=== PATIENT | male | born 1955 | race American Indian/Alaskan Native ===

== ENCOUNTER 2020-05-31 06:12 | Day surgery (SDC) | payer OTHER ==
[~2020-05-31 06:12] MED LIST: NEOMY 3.5 MG/BACIT 400 UNITS/POLY B 5000 UNITS OINT 15 GM TP ONE; SODIUM CHLORIDE 0.9% IRR 1,500 ML BOTTLE IR ONE
[2020-05-31] MEDS ORDERED: LACTATED RINGERS 1,000 ML IV SCH (07:32)
[2020-05-31] MEDS ORDERED: propofoL 200 MG/20 ML VIAL IV ONE (07:32)
[2020-05-31] MEDS ORDERED: HYDROmorphone 1 MG/1 ML INJ ONE (07:32)
[2020-05-31] MEDS ORDERED: ONDANSETRON 4 MG/2 ML INJ IV PRN (07:40)
[2020-05-31] MEDS ORDERED: HYDROmorphone 1 MG/1 ML INJ IV PRN ×2 (07:40)
[2020-05-31] MEDS ORDERED: NEOMY 3.5 MG/BACIT 400 UNITS/POLY B 5000 UNITS/GM OINT PACKET TP ONE (07:40)
[2020-05-31] MEDS ORDERED: BUPIVACAINE/PF (0.25%) 2.5 MG/ML 30 ML VIAL INFILTRATI ONE (07:40)
--- NOTE | 2020-05-31 07:40 | Anesthesia Day of Surgery ---
Anesthesia Day of Surgery - Day of Surgery Patient Examined: Yes Patient H&P Reviewed: Yes Patient is NPO: Yes Beta Blockers: Yes
--- NOTE | 2020-05-31 07:42 | Anesthesia Consultation ---
Anesthesia Consult and Med Hx Date of service: 05/31/20 - Airway Anesthetic Teeth Evaluation: Poor (Many missing. He's planning to have the remaining teeth pulled) ROM Head & Neck: Adequate Mental/Hyoid Distance: Adequate Mallampati Class: Class II Intubation Access Assessment: Good - Pre-Operative Health Status ASA Pre-Surgery Classification: ASA2 Proposed Anesthetic Plan: General - Pulmonary Hx Smoking: No Hx Asthma: No Hx Respiratory Symptoms: No (+2FS) COPD: No Hx Pneumonia: No Hx Sleep Apnea: No (MIKI PRE SCREEN HIGH RISK.) - Cardiovascular System Hx Hypertension: Yes Hx Heart Attack/AMI: No Hx Pacemaker: No Hx Internal Defibrillator: No Hx Valvular Heart Disease: No Hx Heart Murmur: No - Central Nervous System Hx Seizures: No Hx Back Pain: Yes (NECK PAIN) Hx Psychiatric Problems: No - Gastrointestinal Hx Gastroesophageal Reflux Disease: No - Endocrine Hx End Stage Renal Disease: No Hx Cirrhosis: No Hx Liver Disease: No Hx Non-Insulin Dependent Diabetes: Yes Hx Thyroid Disease: No - Hematic Hx Anemia: No Hx Sickle Cell Disease: No - Other Systems Hx Alcohol Use: Yes (OCC WINE) Hx Substance Use: No Hx Cancer: No Hx Obesity: No
[2020-05-31] MEDS ORDERED: BACTERIOSTATIC SODIUM CHLORIDE 0.9% 30 ML VIAL INFILTRATI ONE (07:46)
--- NOTE | 2020-05-31 08:05 | Post Operative Note ---
Date of procedure: 05/31/20 Pre-op diagnosis: severe phimosis Post-op diagnosis: same Findings: severe phimosis Procedure: circ Anesthesia: GETA Surgeon: NARA BUNN Estimated blood loss: minimal Pathology: list (foreskin) Specimen disposition: to lab Condition: stable Disposition: PACU
--- NOTE | 2020-05-31 08:08 | Discharge Summary ---
Short Stay Discharge Plan Activity: other (no straining no sex ) Weight Bearing Status: Full Weight Bearing Diet: low fat, low cholesterol, low salt Special Instructions: other (remove dressing after 7 pm ) Follow up with: BRENDON CASTRO MD [Primary Care Provider] - 7 Days NARA BUNN MD [Staff Physician] - 7 Days
[2020-05-31] MEDS ORDERED: MIDAZOLAM 2 MG/2 ML INJ ONE (08:29)
[2020-05-31] MEDS ORDERED: LIDOCAINE MPF (2%) 20 MG/1 ML VIAL 5 ML ONE (08:34)
[2020-05-31] MEDS ORDERED: ceFAZolin/STERILE WATER 2 GM/20 ML SYRINGE IV NR (08:34)
[2020-05-31] MEDS ORDERED: ONDANSETRON 4 MG/2 ML INJ ONE (09:12)
[2020-05-31] MEDS ORDERED: SODIUM CHLORIDE 0.9% IRR 1,500 ML BOTTLE IR ONE (09:12)
[2020-05-31] MEDS ORDERED: NEOMY 3.5 MG/BACIT 400 UNITS/POLY B 5000 UNITS OINT 15 GM TP ONE (09:20)
--- NOTE | 2020-05-31 10:28 | Post Anesthesia Evaluation ---
- Post Anesthesia Evaluation Patient Participated: Yes Airway Patent: Yes Stable Respiratory Function: Yes Nausea/Vomiting: No Temp > 96.8F: Yes Pain Manageable: Yes Adequeate Hydration: Yes Anesthesia Complications: No Block Receding Appropriately: Not Applicable Patient on Ventilator: No
[2020-05-31 10:46] VITALS: BP 143/88
--- NOTE | 2020-05-31 11:58 | Operative Report ---
PREOPERATIVE DIAGNOSES: Severe phimosis and balanitis xerotica obliterans. POSTOPERATIVE DIAGNOSES: Severe phimosis and balanitis xerotica obliterans. PROCEDURE: Circumcision dorsal slit technique. SURGEON: Dr. Carlos. ANESTHESIA: General. FINDINGS: This is a gentleman with severe phimosis. We could not see any part of the glans. He has vitiligo and evidence of balanitis xerotica obliterans. He now presents for treatment. He could not void well. He would accumulate within the foreskin. It is severely thickened. DESCRIPTION OF PROCEDURE: The patient was brought to the operative room and placed on the operating table. Following induction of anesthesia, placed in supine position, prepped and draped in usual sterile fashion. Two hemostats were placed on the dorsum and a slit was through this thickened tissue. It did not bleed. We saw the glans. The glans were adherent to the inner foreskin circumferentially. A ventral slit was made and we took out all this inflamed foul odor skin. Some of the tissue was adherent to the base of the gland. We could not see the coronal junction while it was all adherent. We did the best we could, but every time we try to peel it off, it would ooze from the glans because it was stuck. The patient tolerated the procedure well. The wound was irrigated and sutures were placed circumferentially with 3-0 chromic. The patient tolerated the procedure well. Any small bleeders were cauterized, tied with 3-0 Vicryl, brought to recovery in stable condition. JOB# [id number] FRED/CRISTIANO
== END 2020-05-31 10:55 | disposition home or self-care (01) ==
LOC: OR 06:12
PROVIDERS: ATTEND Urology
DX: N47.1 Phimosis (principal); Z20.828 Contact with and (suspected) exposure to other viral communicable diseases; I10 Essential (primary) hypertension; K21.9 Gastro-esophageal reflux disease without esophagitis; M19.90 Unspecified osteoarthritis, unspecified site; E11.9 Type 2 diabetes mellitus without complications; Z79.899 Other long term (current) drug therapy; Z79.82 Long term (current) use of aspirin; Z79.84 Long term (current) use of oral hypoglycemic drugs; Z98.41 Cataract extraction status, right eye; Z98.42 Cataract extraction status, left eye; Z87.440 Personal history of urinary (tract) infections; Z72.89 Other problems related to lifestyle; Z98.890 Other specified postprocedural states
CPT/HCPCS: 54161; 82962; 88304; A6250; J0690; J1170; J2250; J2405; J2704; J7120; U0003

== ENCOUNTER 2020-06-24 00:30 | Emergency (ER) | payer OTHER ==
[2020-06-24 02:33] LABS: Basophils # (Auto) 0.1 K/mm3 (0.0-0.1); Basophils % (Auto) 0.6 % (0.0-1.8); Eosinophils # (Auto) 0.1 K/mm3 (0.0-0.4); Hematocrit 37.7 % (35.5-45.6); Hemoglobin 12.6 gm/dl (11.8-15.2); Lymphocytes # (Auto) 1.4 K/mm3 (1.2-5.4); Mean Corpuscular HGB Conc 33 % (32-34); Mean Corpuscular Volume 86 fl (84-94); Monocytes # (Auto) 0.5 K/mm3 (0.0-0.8); Monocytes % (Auto) 3.3 % (0.0-7.3); Platelet Count 216 K/mm3 (140-440); Red Blood Count 4.39 M/mm3 (3.65-5.03)
[2020-06-24 02:43] LABS: Alanine Aminotransferase 12 units/L (7-56); Albumin 4.3 g/dL (3.9-5); Blood Urea Nitrogen 12 mg/dL (9-20); Hemolysis Index 4
[2020-06-24 02:56] LABS: BUN/Creatinine Ratio 17
[2020-06-24 03:34] LABS: Bacteria,Urine 1+ /HPF (Negative); Bilirubin,Urine NEG (Negative); Blood,Urine NEG (Negative); Color,Urine Yellow (Yellow); Mucus,Urine 2+ /HPF; Urobilinogen,Urine < 2.0 mg/dL (<2.0)
[2020-06-24 03:41] LABS: Protein,Urine >500 mg/dL (Negative)
[2020-06-24] MEDS ORDERED: ONDANSETRON 4 MG/2 ML INJ IV STA (06:30)
[2020-06-24] MEDS ORDERED: MORPHINE 4 MG/1 ML INJ IV STA (06:30)
--- NOTE | 2020-06-24 06:34 | Emergency Department Report ---
Blank Doc - Documentation Documentation: 64-year-old F [place] male past medical history of hypertension and diabetes presents emerged department complaining of a 3-day history of abnormal bowel movements with constipation and now a 1 day history of left flank pain which radiates from the flank down to the left lower quadrant associated with a sharp and crampy This initial assessment/diagnostic orders/clinical plan/treatment(s) is/are subject to change based on patients health status, clinical progression and re- assessment by fellow clinical providers in the ED. Further treatment and workup at subsequent clinical providers discretion. Patient/guardian urged not to elope from the ED as their condition may be serious if not clinically assessed and managed. Initial orders include: Labs, CT scan, allergies control
--- NOTE | 2020-06-24 08:30 | Cat Scan Report ---
CT OF THE ABDOMEN AND PELVIS WITH INTRAVENOUS CONTRAST INDICATION / CLINICAL INFORMATION: Left flank and lower abdominal pain for 2 days. TECHNIQUE: The patient received 100 cc Omnipaque [address] scans at this location are performed using CT dose reduction for ALARA by means of automated exposure control. COMPARISON: None available. FINDINGS: ABDOMEN: There is a 2.5 cm rounded mass in the right adrenal gland measures 48 Hounsfield units. The liver, spleen, gallbladder, bile ducts, pancreas, left adrenal gland and kidneys demonstrate no signi ficant abnormality. There is a moderate amount of stool throughout the colon. I see no evidence of bunny wel obstruction, wall thickening or free air. No adenopathy is seen. The lower lung zones are clear. PELVIS: The distal ureters and urinary bladder are normal. The prostate gland is mildly enlarged. A n ormal appendix is present. There is no evidence of diverticulitis. There is a tiny fat-containing lef t inguinal hernia without complication. There is advanced lumbar spondylosis. IMPRESSION: 1. No acute intra-abdominal disease is identified. 2. Incidental 2.5 cm right adrenal mass. Unless prior studies are available for comparison, nonemerge nt adrenal protocol MRI or CT may be helpful in further characterization. Signer Name: Rashaad Kilpatrick MD Signed: 06/24/2020 8:26 AM Workstation Name: [id number]
--- NOTE | 2020-06-24 08:57 | Emergency Department Report ---
ED Abdominal Pain HPI - General Chief Complaint: Abdominal Pain Stated Complaint: LOWER BACK PAIN X'S 2 DAYS Time Seen by Provider: 06/24/20 07:24 Source: patient, family Mode of arrival: Stretcher Limitations: No Limitations - History of Present Illness Initial Comments: This is a 64-year-old male complaining of back pain abdominal pain nausea and vomiting x2 days. He vomited a total of 3-4 times. Patient states his last bowel movement was 3 days ago and he feels like he is constipated. At the time of my evaluation patient is pain-free and in no distress. He denies chest pain or shortness of breath no recent vomiting MD Complaint: abdominal pain -: days(s) (2) Location: diffuse Radiation: back Migration to: no migration Severity scale (0 -10): 4 Quality: aching Consistency: constant Improves With: medication Worsens With: nothing Associated Symptoms: constipation. denies: nausea, vomiting, hematuria, syncope - Related Data Home Medications Medication Instructions Recorded Confirmed Last Taken Adult Probiotic 1 cap PO DAILY 05/23/20 05/23/20 05/30/20 Aspirin 81 mg PO DAILY 05/23/20 05/29/20 05/29/20 Complete Multi Tablet 1 tab PO DAILY 05/23/20 05/23/20 05/30/20 Ibuprofen 400 mg PO DAILY 05/23/20 05/23/20 05/29/20 Lisinopril 40 mg PO DAILY 05/23/20 05/23/20 05/30/20 Tamsulosin 0.4 mg PO DAILY 05/23/20 05/23/20 05/30/20 amLODIPine 10 mg PO BID 05/23/20 05/31/20 05/31/20 08:00 carvediloL 50 mg PO BID 05/23/20 05/31/20 05/31/20 08:00 metFORMIN 1,000 mg PO BID 05/23/20 05/23/20 05/30/20 Previous Rx's Medication Instructions Recorded Last Taken Type Polyethylene Glycol 3350 [Miralax] 255 gm PO DAILY #7 powder 06/24/20 Unknown Rx Allergies Allergy/AdvReac Type Severity Reaction Status Date / Time No Known Allergies Allergy Verified 05/23/20 16:11 ED Review of Systems ROS: Stated complaint: LOWER BACK PAIN X'S 2 DAYS Other details as noted in HPI Comment: All other systems reviewed and negative Constitutional: denies: chills, fever ENT: denies: ear pain, dental pain Respiratory: denies: orthopnea, shortness of breath Cardiovascular: denies: chest pain Endocrine: no symptoms reported Gastrointestinal: abdominal pain, constipation Genitourinary: denies: dysuria, frequency, testicular pain, testicular mass Musculoskeletal: back pain Skin: denies: rash, lesions, change in color Neurological: denies: headache, paresthesias, confusion Psychiatric: denies: anxiety, depression ED Past Medical Hx - Past Medical History Previous Medical History?: Yes Hx Hypertension: Yes Hx Heart Attack/AMI: No Hx Congestive Heart Failure: No Hx Diabetes: Yes Hx GERD: Yes Hx Liver Disease: No Hx Sickle Cell Disease: No Hx Arthritis: Yes (LT KNEE AND LT ANKLE) Hx Headaches / Migraines: No Hx Seizures: No Hx Kidney Stones: No Hx Asthma: No Hx COPD: No Hx Tuberculosis: No Hx HIV: No - Surgical History Past Surgical History?: No Hx Pacemaker: No Hx Internal Defibrillator: No - Social History Smoking Status: Current Every Day Smoker Substance Use Type: None - Medications Home Medications: Home Medications Medication Instructions Recorded Confirmed Last Taken Type Adult Probiotic 1 cap PO DAILY 05/23/20 05/23/20 05/30/20 History Aspirin 81 mg PO DAILY 05/23/20 05/29/20 05/29/20 History Complete Multi Tablet 1 tab PO DAILY 05/23/20 05/23/20 05/30/20 History Ibuprofen 400 mg PO DAILY 05/23/20 05/23/20 05/29/20 History Lisinopril 40 mg PO DAILY 05/23/20 05/23/20 05/30/20 History Tamsulosin 0.4 mg PO DAILY 05/23/20 05/23/20 05/30/20 History amLODIPine 10 mg PO BID 05/23/20 05/31/20 05/31/20 08:00 History carvediloL 50 mg PO BID 05/23/20 05/31/20 05/31/20 08:00 History metFORMIN 1,000 mg PO BID 05/23/20 05/23/20 05/30/20 History Polyethylene Glycol 3350 [Miralax] 255 gm PO DAILY #7 powder 06/24/20 Unknown Rx ED Physical Exam - General Limitations: No Limitations General appearance: alert, in no apparent distress - Head Head exam: Present: atraumatic - Eye Eye exam: Present: normal appearance - ENT ENT exam: Present: normal exam - Respiratory Respiratory exam: Present: normal lung sounds bilaterally. Absent: respiratory distress, wheezes, chest wall tenderness - Cardiovascular Cardiovascular Exam: Present: regular rate, normal heart sounds - GI/Abdominal GI/Abdominal exam: Present: soft, normal bowel sounds. Absent: distended, tenderness, guarding - Extremities Exam Extremities exam: Present: normal inspection - Back Exam Back exam: Present: normal inspection - Neurological Exam Neurological exam: Present: alert, oriented X3 - Psychiatric Psychiatric exam: Present: normal affect - Skin Skin exam: Present: warm, dry, intact, normal color ED Course Vital Signs 06/24/20 06/24/20 06/24/20 01:19 08:00 09:37 Temperature 97.7 F Pulse Rate 85 78 88 Respiratory 18 18 18 Rate Blood Pressure 175/95 Blood Pressure 156/78 156/88 [Left] O2 Sat by Pulse 98 99 97 Oximetry - Reevaluation(s) Reevaluation #1: 06/24/20 09:02 Patient pain-free at this time in no distress all findings discussed with patient he has follow-up appointment with his PCP Rescheduled for next week ED Medical Decision Making - Lab Data Result diagrams: 06/24/20 01:49 06/24/20 01:49 - Radiology Data Radiology results: report reviewed CT of abdomen and Pelvis FINDINGS: ABDOMEN: There is a 2.5 cm rounded mass in the right adrenal gland measures 48 Hounsfield units. The liver, spleen, gallbladder, bile ducts, pancreas, left adrenal gland and kidneys demonstrate no significant abnormality. There is a moderate amount of stool throughout the colon. I see no evidence of bowel obstruction, wall thickening or free air. No adenopathy is seen. The lower lung zones are clear. PELVIS: The distal ureters and urinary bladder are normal. The prostate gland is mildly enlarged. A normal appendix is present. There is no evidence of diverticulitis. There is a tiny fat-containing left inguinal hernia without complication. There is advanced lumbar spondylosis. IMPRESSION: 1. No acute intra-abdominal disease is identified. 2. Incidental 2.5 cm right adrenal mass. Unless prior studies are available for comparison, nonemergent adrenal protocol MRI or CT may be helpful in further characterization. - Medical Decision Making This is a 64-year-old gentleman with complaint of abdominal pain and low back pain. He has a past medical history of hypertension and diabetes. CBC showed is in a white count of 13.7 on chemistry patient had a elevated glucose of 245 but BUN and creatinine was within normal limits urinalysis shows red blood cells protein greater than 500 and glucose greater than 500. Patient states that his PCP Dr. Fina Howard is currently working on changing his diabetic medication and he has a follow-up appointment with her next week. CAT scan results revealed to the patient he does have constipation and there is also an incidental finding of a right adrenal mass that should be further evaluated by nonemergent MRI I discussed this with patient and also wrote this in his discharge instructions to follow-up with his primary care doctor. Patient is now pain-free I discussed at length with patient ways to improve his constipation increase oral hydration increase fresh fruits and vegetables and I also recommended MiraLAX patient verbalizes understanding - Differential Diagnosis Abdominal pain constipation colitis Critical Care Time: No Critical care attestation.: If time is entered above; I have spent that time in minutes in the direct care of this critically ill patient, excluding procedure time. ED Disposition Clinical Impression: Abdominal pain Qualifiers: Abdominal location: generalized Qualified Code(s): R10.84 - Generalized abdominal pain Constipation Qualifiers: Constipation type: slow transit constipation Qualified Code(s): K59.01 - Slow transit constipation Disposition: DC-01 TO HOME OR SELFCARE Is pt being admited?: No Does the pt Need Aspirin: No Condition: Stable Instructions: Constipation, Adult, Abdominal Pain, Adult, [id number] Additional Instructions: Please follow-up with your doctor next week as scheduled. You are constipated and we recommend that you drink at least 6 to 8 glasses of water daily. Drink food that are high in fiber fresh fruits and vegetables. The CAT scanner of your abdomen and pelvis shows the following findings. Please bring these results to your the right adrenal mass can be further evaluated by an MRI as recommended 1. No acute intra-abdominal disease is identified. 2. Incidental 2.5 cm right adrenal mass. Unless prior studies are available for comparison, nonemergent adrenal protocol MRI or CT may be helpful in further characterizati on. Prescriptions: Polyethylene Glycol 3350 [Miralax] 255 gm PO DAILY #7 powder Referrals: PRIMARY CARE, [Primary Care Provider] - 3-5 Days MINO FIGUEROA MD [Staff Physician] - 3-5 Days Time of Disposition: 09:13
[2020-06-24 09:38] VITALS: BP 156/88
== END 2020-06-24 09:37 | disposition home or self-care (01) ==
LOC: ED 00:30
DX: K59.00 Constipation, unspecified (principal); R10.84 Generalized abdominal pain; I10 Essential (primary) hypertension; E11.9 Type 2 diabetes mellitus without complications; K21.9 Gastro-esophageal reflux disease without esophagitis; M19.91 Primary osteoarthritis, unspecified site; F17.200 Nicotine dependence, unspecified, uncomplicated; Z79.1 Long term (current) use of non-steroidal anti-inflammatories (NSAID); Z79.899 Other long term (current) drug therapy; Z79.84 Long term (current) use of oral hypoglycemic drugs
CPT/HCPCS: 36415; 74177; 80053; 81001; 83690; 85025; 96374; 96375; 99284; J2270; J2405; Q9967